=== PATIENT | female | born 1940 | race Caucasian/White ===

== ENCOUNTER 2023-11-08 17:14 | Emergency (ER) | payer MEDICARE, MEDICAID, SELFPAY ==
[2023-11-08] VITALS (9 sets, daily range): BP systolic 115–141; BP diastolic 46–83; PULSE 74–97; RESP 14–20; TEMP -17.7–36.9; O2SAT 96–99; BMI 22.8
--- NOTE | 2023-11-08 17:20 | ED.SYNCOPE ---
HPI - Syncope General Chief Complaint: Dizziness Stated Complaint: near syncope episode, elevated bp Time Seen by Provider: 11/08/23 17:19 Source: patient Mode of arrival: EMS Limitations: no limitations History of Present Illness HPI narrative: 82-year-old female with a history diabetes mellitus, hypertension, hyperlipidemia who presents emergency department for evaluation of a near syncopal episode. The patient states she sitting in the kitchen when she had gradual onset of lower abdominal pain. She states she felt dizzy and lightheaded. She felt like she had to move her bowels so she got up and went to the bathroom. While she was sitting on the bathroom initially she had to strain to move her bowels but then developed diarrhea. She states that she was very lightheaded and felt like she was going to pass out. An ambulance was called. By the time the ambulance arrived she was able to get dressed and was feeling better. She states she had a similar near syncopal/syncopal episode 2 years prior but can not recall the details of that event. Patient states that she gets lower abdominal cramping frequently and often gets diarrhea. She does not have a diagnosis for these symptoms. She denied fever, chills, chest pain, shortness of breath, dyspnea on exertion, nausea, frequency, urgency or dysuria. She states she has been eating and drinking well. Related Data Allergies Allergy/AdvReac Type Severity Reaction Status Date / Time Unable to Assess Allergy Verified 11/08/23 17:25 Review of Systems Review of Systems: Yes all other systems are reviewed and are negative PMFSH Social History Social History Advance Directives: Yes Advance Directives on File: Yes Advance Directives Date on File: 11/08/23 Do you have a plan to hurt others: No Plan Physical Exam Vital Signs: Vital Signs: Last Vital Signs Temp 98.5 F 11/08/23 19:47 Pulse 87 11/08/23 19:47 Resp 18 11/08/23 19:47 BP 118/50 L 11/08/23 19:47 Pulse Ox 96 11/08/23 19:47 O2 Del Method Room Air 11/08/23 19:47 BMI result Body Mass Index 22.8 Exam: General: Awake, alert in no distress Head: Normocephalic, atraumatic EENT: PERRL, Lids normal, sclera normal, conjunctiva normal, nose normal , ears normal, throat without erythema or exudates Neck: Supple, no adenopathy Lung: breath sounds symmetric, no wheezing, rales or rhonchi Chest: symmetric movement, nontender Heart: regular rate and rhythm, normal S1, S2 no murmurs or rubs Abdomen: soft, non-tender, nondistended, normal bowel sounds Back: no vertebral tenderness, no CVAT Extremities: no deformities, moves all extremities symmetrically Neuro: Awake, alert, oriented, normal speech, cranial nerves intact, moves all extremities symmetrically Psych: Pleasant, cooperative Medical Decision Making Medical Decision Making [facility] Narrative: 82-year-old female with a history diabetes mellitus, hypertension, hyperlipidemia who presents emergency department for evaluation of a near syncopal episode that initially started while she was sitting in the kitchen and developed abdominal cramping. She went into the bathroom, was straining at the stool, then developed diarrhea and felt as if she was going to pass out but had no syncopal episode. The patient states that by the time the ambulance had arrived she had been able to get dressed and felt significantly better. She has no symptoms at the time presentation. She had a syncopal/near syncopal episode 2 years prior but can not recall the details of that event. She states she gets lower abdominal cramping and diarrhea often but is not been diagnosed with any GI condition. She was eating and drinking well. Review of systems was negative. Physical examination was unremarkable. Differential diagnosis: ?Includes but is not limited to myocardial infarction, myocardial ischemia, arrhythmia, vasovagal near syncope, orthostatic hypotension, dehydration, volume depletion, electrolyte abnormalities, anemia Following evaluation was ordered: CBC, CMP, troponin, EKG, O2 saturation monitoring, cardiac monitorin Course: 19:50 My interpretation patient's laboratory evaluation as follows: Normocytic anemia with an H&H of 11.4 and 35.8-not related to her near syncope. Patient has an elevated BUN creatinine of 22 and 1.50. Troponin was below detectable limits. EKG was unremarkable. Patient's symptoms are consistent with near syncopal episode triggered by her lower abdominal pain, straining at the stool and diarrhea. I did discuss this with the patient and the patient's family the patient will be discharged home. Admission/Observation Consideration of admission/observation: Escalation of care including admission/observation considered Lab Data [facility] Lab Attestation statement: I reviewed the patient's lab results. 11/08/23 18:01 11/08/23 18:01 Labs: Lab Results 11/08/23 Range/Units 18:01 WBC 8.0 (4.8-10.8) X10*3/uL RBC 4.10 L (4.20-5.50) X10*6/uL Hgb 11.4 L (12.0-16.0) g/dl Hct 34.8 L (37.0-47.0) % MCV 84.9 (80.0-98.0) fL MCH 27.8 (27.0-33.0) pg MCHC 32.8 (31.0-35.0) g/dl RDW 14.1 (11.0-16.0) % Plt Count 203 (160-400) X10*3/uL MPV 10.5 (9.4-12.3) fL Immature Gran % (Auto) 0.6 H (0.0-0.4) % Neut % (Auto) 74.8 H (45-73) % Lymph % (Auto) 14.6 L (20-40) % [place] % (Auto) 8.4 (2-11) % Eos % (Auto) 1.0 (0-4) % Baso % (Auto) 0.6 (0-2) % Lymph # (Auto) 1.2 (1.2-4.9) X10*3/uL [place] # (Auto) 0.7 (0.1-1.2) X10*3/uL Eos # (Auto) 0.1 (0.0-0.4) X10*3/uL Baso # (Auto) 0.1 (0.0-0.2) X10*3/uL Abs Immat Gran (auto) 0.05 H (0.00-0.03) X10*3/uL Absolute Neuts (auto) 6.0 (2.0-8.3) x10*3/uL Absolute Nucleated RBC 0.000 (0.0-0.012) X10*3/uL Nucleated RBC % (auto) 0.0 (0.0-0.2) /100WBC APTT 27.0 (26.0-36.8) SEC Sodium 140 (135-145) mmol/L Potassium 3.7 (3.3-5.1) mmol/L Chloride 102 (96-108) mmol/L Carbon Dioxide 26 (22-29) mmol/L Anion Gap 16 (12-20) BUN 22 H (9-16) mg/dL Creatinine 1.50 H (0.5-1.4) mg/dL Estim Creat Clear Calc 23.0 Estimated GFR 33 Random Glucose 273 H (60-115) mg/dL Calcium 9.9 (8.4-10.2) mg/dL Total Bilirubin 0.3 (0.0-1.0) mg/dL AST 13 (5-31) U/L ALT 13 (0-31) U/L Alkaline Phosphatase 53 (39-117) U/L Troponin I High Sens < 2.7 (<3.5-17.0) ng/L Total Protein 6.7 (6.5-8.0) g/dL Albumin 4.0 (3.5-5.0) g/dL Lipase 29 (8-78) U/L Ethyl Alcohol < 10 mg/dL Independent Interpretation I performed an independent interpretation of an: EKG Interpretation: My independent interpretation patient's laboratory evaluation as follows: Normal sinus rhythm rate of 93, normal IA interval, QRS duration QTC interval, no ST segment elevation, no ST segment depression, no PACs, no PVCs, this is a normal EKG. Independent Historian Clinical information obtained from an independent historian. History obtained from or confirmed by: Other (Family members , son) Chronic Conditions Patient?s care impacted by: Diabetes and Hypertension Discharge Plan Discharge Clinical Impression: Vasovagal near syncope Patient Disposition: Home, Self-Care Instructions: Syncope in Older Adults (ED) Additional Instructions: Your EKG was normal. Your troponin (marker of heart damage) was below detectable limits which is reassuring. Your blood work revealed a mild normocytic anemia with an H H&H of 11.4 and 34.8 with an MCV of 84. Your kidney function was mildly abnormal with a BUN of 22 and a creatinine of 1.50 with a GFR of 33. Your glucose was elevated at 733. None of these abnormal values were related to almost passing out, you should discuss these values with your doctor and get follow-up blood work in the next 2-4 weeks. Your symptoms were caused by your abdominal pain, straining to move your bowels and diarrhea. This caused your blood pressure to drop in your pulse to draw and you almost passed out. This is common is called vasovagal near-syncope which means that you almost faint did. Increase your fluid intake. If you get this symptom of dizziness again in the future, lie down for at least 15 minutes in the symptoms should past. If your still having the symptoms after 15 minutes then call an ambulance and go to the emergency department for evaluation. Follow-up with your doctor in 2 days. Please return to the emergency department if your symptoms get worse or if you develop any symptoms that are concerning to you. Print Language: Omani
--- NOTE | 2023-11-08 17:29 | ECG_ITS ---
Test Reason : ABD PAIN / DIZZINESS Blood Pressure : / mmHG Vent. Rate : 093 BPM Atrial Rate : 093 BPM P-R Int : 160 ms QRS Dur : 088 ms QT Int : 362 ms P-R-T Axes : 058 -43 046 degrees QTc Int : 450 ms Normal sinus rhythm Left axis deviation Abnormal ECG No previous ECGs available Referred By: Wilner Tobias Electronically Signed By:SAGRARIO ARNOLD
[2023-11-08 18:10] LABS: MANUAL DIFF FLAG NO
[2023-11-08 18:12] LABS: Basophils Absolute Auto 0.1 X10*3/uL (0.0-0.2); Basophils Percent Auto 0.6 % (0-2); Eosinophils Absolute Auto 0.1 X10*3/uL (0.0-0.4); Hematocrit 34.8 % (37.0-47.0); Hemoglobin 11.4 g/dl (12.0-16.0); Imm Gran Abs Auto 0.05 X10*3/uL (0.00-0.03); Imm Gran Pct Auto 0.6 % (0.0-0.4); Lymphocytes Absolute Auto 1.2 X10*3/uL (1.2-4.9); Lymphocytes Percent Auto 14.6 % (20-40); Mean Corpuscular HGB Conc 32.8 g/dl (31.0-35.0); Mean Corpuscular Hemoglobin 27.8 pg (27.0-33.0); Mean Corpuscular Volume 84.9 fL (80.0-98.0); Mean Platelet Volume 10.5 fL (9.4-12.3); Monocytes Absolute Auto 0.7 X10*3/uL (0.1-1.2); Monocytes Percent Auto 8.4 % (2-11); Neutrophils Percent Auto 74.8 % (45-73); Platelet Count 203 X10*3/uL (160-400); Red Cell Distribution Width 14.1 % (11.0-16.0)
[2023-11-08 18:35] LABS: Alanine Aminotransferase 13 U/L (0-31); Alkaline Phosphatase 53 U/L (39-117); Anion Gap 16 (12-20); Aspartate Amino Transferase 13 U/L (5-31); Bilirubin Total 0.3 mg/dL (0.0-1.0); Blood Urea Nitrogen 22 mg/dL (9-16); Calcium 9.9 mg/dL (8.4-10.2); Carbon Dioxide 26 mmol/L (22-29); Chloride 102 mmol/L (96-108); Estimated Glomerular Filt Rate 33; Ethanol < 10 mg/dL; Glucose Random 273 mg/dL (60-115); Lipase 29 U/L (8-78); Potassium 3.7 mmol/L (3.3-5.1); Sodium 140 mmol/L (135-145); Total Protein 6.7 g/dL (6.5-8.0)
[2023-11-08 18:39] LABS: Troponin-I High Sensitivity < 2.7 ng/L (<3.5-17.0)
--- NOTE | 2023-11-08 19:55 | MHC.EDTECH ---
This tech took over care of patient at 1900,hourly rounds and vitals completed,awaiting to be discharged at this time.
== END 2023-11-08 20:33 | disposition home or self-care (01) ==
PROVIDERS: Emergency Provider Emergency Medicine Emergency Medical Services
DX: R55 Syncope and collapse (principal); R10.30 Lower abdominal pain, unspecified; D64.9 Anemia, unspecified; E11.9 Type 2 diabetes mellitus without complications; I10 Essential (primary) hypertension; E78.5 Hyperlipidemia, unspecified
CPT/HCPCS: 36415; 80053; 80307; 83690; 84484; 85025; 85730; 93005; 99284

== ENCOUNTER → 2023-11-08 17:29 | Outpatient (BNV) | payer MEDICARE, MEDICAID, SELFPAY | PROVIDERS: Emergency Provider Emergency Medicine Emergency Medical Services; Visit Provider Internal Medicine | DX: R94.31 Abnormal electrocardiogram [ECG] [EKG] (principal) | CPT/HCPCS: 93010 ==